=== PATIENT | female | born 1955 | race Caucasian/White ===

== ENCOUNTER 2019-02-03 08:52 | Emergency (ER) | payer MEDICARE, BC ==
[~2019-02-03] VITALS: Ht 162.6 cm; Wt 90.7 kg
[2019-02-03 09:11] VITALS: BP 141/79
--- NOTE | 2019-02-03 09:34 | ER.PDOC ---
General Chief Complaint: Requesting Medical Care Stated Complaint: FEVER,SORE THROAT,COUGH/CONGESTION,EARACHE Time seen by MD: 09:33 Source: patient Exam Limitations: no limitations History of Present Illness Initial Comments Cough, congestion and sore throat for 5 days. No fever or chills. Timing/Duration: gradual Severity: moderate Associated Symptoms: runny nose, sore throat, cough Constitutional: see HPI EENTM: see HPI Respiratory: see HPI Cardiovascular: no symptoms reported Gastrointestinal: no symptoms reported All Other Systems: Reviewed and Negative Past Medical History Surgical History: back, hysterectomy LMP (females 10-50): N/A Not applicalbe Social History Smoking: non-smoker Alcohol Use: none Drug Use: none Physical Exam General Appearance: alert, no distress Nose: nose nml Throat: pharynx nml, airway nml Neck: nml inspection, supple Respiratory: no resp.distress, breath sounds nml Abdomen: non-tender, no organomegaly CVS: reg rate & rhythm, heart sounds nml Skin: color nml, no rash, warm/dry Extremities: non-tender, nml ROM, no pedal edema NEURO/PSYCH: oriented x 3, CN's nml as tested, motor nml, sensation nml, mood/affect nml Results/Orders Results/Orders Orders - JUAN CARLOS LO MD Strep Screen (02/03/19 09:27) Influenza A&B (02/03/19 09:27) Vital Signs Date Time Temp Pulse Resp B/P (MAP) Pulse Ox O2 Delivery O2 Flow Rate FiO2 02/03/19 09:11 86 20 95 Room Air Laboratory Tests Test 02/03/19 09:35 Influenza Type A Antigen Pending Influenza B Immunofluorescence Pending Group A Streptococcus Screen NEGATIVE (NEGATIVE) Progress Progress Spoke with Dr. Ashton and patient will follow up with him on 02/06/19 EKG/XRAY/CT/US XRAY Comments: Fracture right middle toe and fibula CT Comments: No acute intracranial abnormality an no fracture of C spine Departure Time of Disposition: 10:08 Disposition: 01 HOME, SELF-CARE Impression: Primary Impression: Closed right fibular fracture Additional Impressions: Fracture, phalanx, foot Right ankle sprain Condition: Stable Referrals: PCP,UNKNOWN (PCP) PRIMARY CARE PROVIDER Additional Instructions: Tramadol Ibuprofen Ice 3 times a day for 3 days F/U with Dr. Ashton on 02/06/19 at 1pm Return if any concerns Duration or Time Spent with Pa: 45 mins Problem Qualifiers Primary Impression: Closed right fibular fracture Encounter type: initial encounter Fibula location: proximal Fracture morphology: unspecified fracture morphology Qualified Codes: S82.831A - Other fracture of upper and lower end of right fibula, initial encounter for closed fracture Additional Impressions: Fracture, phalanx, foot Encounter type: initial encounter Toe: unspecified toe Fracture type: closed Fracture alignment: displaced Laterality: right Qualified Codes: S92.911A - Unspecified fracture of right toe(s), initial encounter for closed fracture Right ankle sprain Encounter type: initial encounter Involved ligament of ankle: unspecified ligament Qualified Codes: S93.401A - Sprain of unspecified ligament of right ankle, initial encounter JUAN CARLOS LO MD Feb 03, 2019 09:34
--- NOTE | 2019-02-03 10:28 | ER.PDOC ---
General Chief Complaint: Requesting Medical Care Stated Complaint: FEVER,SORE THROAT,COUGH/CONGESTION,EARACHE Time seen by MD: 09:15 Source: patient Exam Limitations: no limitations History of Present Illness Initial Comments Cough and congestion for 5 days. No fever or chills but has sore throat. Timing/Duration: gradual Severity: moderate Associated Symptoms: runny nose, sore throat, cough Constitutional: no symptoms reported EENTM: see HPI Respiratory: see HPI Cardiovascular: no symptoms reported Gastrointestinal: no symptoms reported All Other Systems: Reviewed and Negative Past Medical History Surgical History: back, hysterectomy LMP (females 10-50): N/A Not applicalbe Social History Smoking: non-smoker Alcohol Use: none Drug Use: none Physical Exam General Appearance: alert, no distress Nose: nose nml Throat: pharynx nml, airway nml Neck: nml inspection, supple Respiratory: no resp.distress, breath sounds nml Abdomen: non-tender, no organomegaly CVS: reg rate & rhythm, heart sounds nml Skin: color nml, no rash, warm/dry Extremities: non-tender, nml ROM, no pedal edema NEURO/PSYCH: oriented x 3, CN's nml as tested, motor nml, sensation nml, mood/affect nml Results/Orders Results/Orders Orders - JUAN CARLOS LO MD Strep Screen (02/03/19 09:27) Influenza A&B (02/03/19 09:27) Vital Signs Date Time Temp Pulse Resp B/P (MAP) Pulse Ox O2 Delivery O2 Flow Rate FiO2 02/03/19 09:11 86 20 95 Room Air Laboratory Tests Test 02/03/19 09:35 Influenza Type A Antigen Pending Influenza B Immunofluorescence Pending Group A Streptococcus Screen NEGATIVE (NEGATIVE) Departure Time of Disposition: 10:27 Disposition: 01 HOME, SELF-CARE Impression: Primary Impression: URI, acute Condition: Stable Referrals: PCP,UNKNOWN (PCP) PRIMARY CARE PROVIDER Additional Instructions: Allaatussin AC Push fluids F/U with your PCP in 1 week Return if any worsening symptoms or concerns Duration or Time Spent with Pa: 20 mins JUAN CARLOS LO MD Feb 03, 2019 10:28
[2019-02-03 10:30] VITALS: BP 138/83
== END 2019-02-03 10:31 | disposition home or self-care (01) ==
LOC: ER 08:52
DX: J06.9 Acute upper respiratory infection, unspecified (principal); Z90.710 Acquired absence of both cervix and uterus
CPT/HCPCS: 87070; 87804; 87880; 99284